=== PATIENT | female | born 1960 | race Caucasian/White ===

== ENCOUNTER 2016-10-30 18:31 | Observation (INO) | payer OTHER ==
[2016-10-30] MEDS ORDERED: Aspirin 81 MG Tab.Chew PO ONE (19:03)
[2016-10-30] MEDS: Nitroglycerin 0.4 MG Tab.SL SL PRN ×3 (19:21→19:39)
[2016-10-30] MEDS ORDERED: Nitroglycerin/D5W 25 MG/250 ML BOTTLE IV SCH (19:45)
[2016-10-30] MEDS ORDERED: Ondansetron 4 MG/2 ML SDV IVPUSH ONE (19:48)
[2016-10-30] MEDS ORDERED: Sodium Chloride 0.9% 1,000 ML IV SCH (20:00)
[2016-10-30] MEDS ORDERED: Morphine 4 MG/ML Syringe IVPUSH ONE (20:16)
--- NOTE | 2016-10-30 21:51 | EDM.PDOC ---
ED HPI GENERAL MEDICAL PROBLEM - General Chief Complaint: Chest Pain Stated Complaint: CHEST PAIN Time Seen by Provider: 10/30/16 18:55 Source of Information: Reports: Patient History Limitations: Reports: No Limitations - History of Present Illness INITIAL COMMENTS - FREE TEXT/NARRATIVE: History of present illness: [56-year-old female presenting with right-sided chest pain radiating through to her back which began at 5:00 this evening when she was walking. It is associated with some shortness of breath and nausea but no diaphoresis. She noted that when she was walking she had to sit down and rest and catch her breath and this seemed unusual to her. She has no history of coronary disease or blood clots or PEs. She does have a history of hypertension and diabetes and is on metformin. She is a nonsmoker. She is presenting it was 7 out of 10 pain. No history of fevers or chills cough or cold symptoms or leg pain no constipation diarrhea or dysuria] Review of systems: As per history of present illness and below otherwise all systems reviewed and negative. Past medical history: As per history of present illness and as reviewed below otherwise noncontributory. Surgical history: As per history of present illness and as reviewed below otherwise noncontributory. Social history: No reported history of drug or alcohol abuse. Family history: As per history of present illness and as reviewed below otherwise noncontributory. Physical exam: HEENT: Atraumatic, normocephalic, pupils reactive, negative for conjunctival pallor or scleral icterus, mucous membranes moist, throat clear, neck supple, nontender, trachea midline. Lungs: Clear to auscultation, breath sounds equal bilaterally, chest nontender. Heart: S1S2, regular, negative for clicks, rubs, or JVD. Abdomen: Soft, nondistended, nontender. Negative for masses or hepatosplenomegaly. Negative for costovertebral tenderness. Pelvis: Stable nontender. Genitourinary: Deferred. Rectal: Deferred. Extremities: Atraumatic, negative for cords or calf pain. Neurovascular unremarkable. Neuro: Awake, alert, oriented. Cranial nerves II through XII unremarkable. Cerebellum unremarkable. Motor and sensory unremarkable throughout. Exam nonfocal. Diagnostics: [Initial EKG showed flipped T waves in anterior leads initial troponin was negative d-dimer is normal CBC and complete metabolic panel is unremarkable] Therapeutics: [Patient was given aspirin and sublingual nitroglycerin and her pain went from a 7 to about a 4 she was started on nitro drip that brought it down to 2 she was given morphine and it dropped down to about 0.5. At this point and a repeat EKG was done and continued to show the flipped T waves otherwise no changes were noted she is in a sinus rhythm rate of 63. She's been hemodynamic stable while here] Impression: [Chest pain] Plan: [I spoke with Dr. Roberto and the patient will be admitted to the intensive care unit for concerns for coronary artery syndrome.] Definitive disposition and diagnosis as appropriate pending reevaluation and review of above. chest Pain Score (Numeric/FACES): 2 - Related Data Allergies Allergy/AdvReac Type Severity Reaction Status Date / Time No Known Allergies Allergy Verified 10/30/16 18:46 Home Meds: Home Meds Bisoprolol/Hydrochlorothiazide [Bisoprolol/HCTZ 5-6.25 MG] 1 tab PO DAILY [History] Doxycycline Hyclate 20 mg PO BID 10/30/16 [History] Lisinopril 5 mg PO DAILY 10/30/16 [History] metFORMIN [Glucophage] 500 mg PO BID 10/30/16 [History] Past Medical History Cardiovascular History: Reports: High Cholesterol, Hypertension Other Musculoskeletal History: fused spine. whitley rods Endocrine/Metabolic History: Reports: Diabetes, Type II - Past Surgical History GI Surgical History: Reports: Cholecystectomy Female Surgical History: Reports: Section Social & Family History - Tobacco Use Smoking Status *Q: Never Smoker - Recreational Drug Use Recreational Drug Use: No ED ROS GENERAL - Review of Systems Review Of Systems: ROS reveals no pertinent complaints other than HPI. ED EXAM, GENERAL - Physical Exam Exam: See Below Course - Vital Signs Last Recorded V/S: Last Vital Signs Temp 36.5 C 10/30/16 19:23 Pulse 57 L 10/30/16 21:00 Resp 17 10/30/16 20:09 BP 159/81 H 10/30/16 21:00 Pulse Ox 95 10/30/16 21:00 - Orders/Labs/Meds Orders: Active Orders 24 hr Category Date Time Status EKG Documentation Completion [RC] ASDIRECTED Care 10/30/16 19:04 Active EKG Documentation Completion [RC] ASDIRECTED Care 10/30/16 20:35 Active Chest 1V Frontal [CR] Stat Exams 10/30/16 19:03 Taken Nitroglycerin/D5W [Nitroglycerin 25 MG/D5W 250 ML] Med 10/30/16 19:45 Active 25 mg in 250 ml IV TITRATE Sodium Chloride 0.9% [Normal Saline] 1,000 ml Med 10/30/16 20:00 Active IV ASDIRECTED EKG 12 Lead [EK] Stat Ther 10/30/16 19:03 Ordered EKG 12 Lead [EK] Stat Ther 10/30/16 20:34 Ordered Medication Orders Nitroglycerin/Dextrose (Nitroglycerin 25 Mg/D5w 250 Ml) 25 mg in 250 mls @ 6 mls/hr IV TITRATE MARY; 10 MCG/MIN PRN Reason: Protocol Last Admin: 10/30/16 19:59 Dose: 10 mcg/min, 6 mls/hr Sodium Chloride (Normal Saline) 1,000 mls @ 200 mls/hr IV ASDIRECTED MARY Last Admin: 10/30/16 19:55 Dose: 200 mls/hr Labs: Laboratory Tests 10/30/16 10/30/16 10/30/16 Range/Units 19:03 19:03 19:03 WBC 8.4 (4.5-11.0) K/uL RBC 4.47 (3.30-5.50) M/uL Hgb 13.4 (12.0-15.0) g/dL Hct 38.2 (36.0-48.0) % MCV 86 (80-98) fL MCH 30 (27-31) pg MCHC 35 (32-36) % Plt Count 257 (150-400) K/uL Neut % (Auto) 65 (36-66) % Lymph % (Auto) 25 (24-44) % [place] % (Auto) 7 H (2-6) % Eos % (Auto) 2 (2-4) % Baso % (Auto) 1 (0-1) % D-Dimer, Quantitative 108 (0.0-400.0) ng/mL Sodium 135 L (140-148) mmol/L Potassium 3.9 (3.6-5.2) mmol/L Chloride 98 L (100-108) mmol/L Carbon Dioxide 28 (21-32) mmol/L Anion Gap 12.9 (5.0-14.0) mmol/L BUN 18 (7-18) mg/dL Creatinine 1.0 (0.6-1.0) mg/dL Est Cr Clr Drug Dosing 53.60 mL/min Estimated GFR (MDRD) 57 L (>60) Glucose 217 H (74-106) mg/dL Calcium 9.0 (8.5-10.1) mg/dL Total Bilirubin 0.7 (0.2-1.0) mg/dL AST 34 (15-37) U/L ALT 60 (12-78) U/L Alkaline Phosphatase 93 (46-116) U/L Troponin I < 0.017 (0.000-0.056) ng/mL Total Protein 7.9 (6.4-8.2) g/dL Albumin 3.9 (3.4-5.0) g/dL Globulin 4.0 H (2.3-3.5) g/dL Albumin/Globulin Ratio 1.0 L (1.2-2.2) Meds: Medications Generic Name Dose Route Start Last Admin Trade Name Freq PRN Reason Stop Dose Admin Nitroglycerin/Dextrose 25 mg in 250 mls @ 6 mls/hr 10/30/16 19:45 10/30/16 19 :59 Nitroglycerin 25 Mg/D5w 250 Ml IV 10 mcg/min TITRATE MARY 6 mls/hr Protocol Administration 10 MCG/MIN Sodium Chloride 1,000 mls @ 200 mls/hr 10/30/16 20:00 10/30/16 19:55 Normal Saline IV 200 mls/hr ASDIRECTED MARY Administration Discontinued Medications Generic Name Dose Route Start Last Admin Trade Name Freq PRN Reason Stop Dose Admin Aspirin 324 mg 10/30/16 19:03 10/30/16 19:20 Aspirin PO 10/30/16 19:04 324 mg ONETIME ONE Administration Morphine Sulfate 4 mg 10/30/16 20:16 10/30/16 20:36 Morphine IVPUSH 10/30/16 20:17 4 mg ONETIME ONE Administration Nitroglycerin 0.4 mg 10/30/16 19:03 10/30/16 19:39 Nitrostat SL 10/30/16 19:14 0.4 mg Q5M PRN Administration Chest Pain Ondansetron HCl 4 mg 10/30/16 19:48 10/30/16 19:59 Zofran IVPUSH 10/30/16 19:49 4 mg ONETIME ONE Administration Departure - Departure Time of Disposition: 21:50 Disposition: Admitted As Inpatient 65 Condition: Good Clinical Impression: Chest pain Qualifiers: Chest pain type: unspecified Qualified Code(s): R07.9 - Chest pain, unspecified Forms: ED Department Discharge - My Orders Last 24 Hours: My Active Orders 10/30/16 19:03 Chest 1V Frontal [CR] Stat EKG 12 Lead [EK] Stat 10/30/16 19:04 EKG Documentation Completion [RC] ASDIRECTED 10/30/16 19:45 Nitroglycerin/D5W [Nitroglycerin 25 MG/D5W 250 ML] 25 mg in 250 ml IV TITRATE 10/30/16 20:00 Sodium Chloride 0.9% [Normal Saline] 1,000 ml IV ASDIRECTED 10/30/16 20:34 EKG 12 Lead [EK] Stat 10/30/16 20:35 EKG Documentation Completion [RC] ASDIRECTED - Assessment/Plan Last 24 Hours: My Active Orders 10/30/16 19:03 Chest 1V Frontal [CR] Stat EKG 12 Lead [EK] Stat 10/30/16 19:04 EKG Documentation Completion [RC] ASDIRECTED 10/30/16 19:45 Nitroglycerin/D5W [Nitroglycerin 25 MG/D5W 250 ML] 25 mg in 250 ml IV TITRATE 10/30/16 20:00 Sodium Chloride 0.9% [Normal Saline] 1,000 ml IV ASDIRECTED 10/30/16 20:34 EKG 12 Lead [EK] Stat 10/30/16 20:35 EKG Documentation Completion [RC] ASDIRECTED
--- NOTE | 2016-10-30 22:44 | PCM.HP ---
H&P History of Present Illness - General Date of Service: 10/30/16 Admit Problem/Dx: Admission Diagnosis/Problem Admission Diagnosis/Problem Atypical chest pain Source of Information: Patient, Family, Provider History Limitations: Reports: No Limitations - History of Present Illness Initial Comments - Free Text/Narative: Katherine presents to the emergency room today with right lower chest pain that radiates to her back. She first noticed the pressure-like pain around 5:30 PM this evening while she was shopping. The shopping trip was nearing a conclusion and they hopped in the car and were headed home. While she was going home the pain did not improve. She did have some associated shortness of breath described as difficulty trying to take a breath. She did not take anything to try to make the pain better before arriving at the emergency room. The pain did radiate around to the back. She had some mild nausea earlier in the day and had an episode of vomiting here in the emergency room after she had received 3 nitroglycerin tablets. Her chest pain has essentially resolved at this point. She no longer feels short of breath. She has not had fevers or chills. Appetite has been normal. She had a light lunch but did have a Dairy White blizzard this evening. She has not had recent difficulty with similar symptoms. Her ability to exercise has not changed in recent months and she is able to exercise moderately vigorously in a pool for 20 minutes with no chest pain or shortness of breath. Workup in the emergency room has been reassuring with normal laboratory studies , normal chest x-ray and stable vital signs. She is essentially pain-free after 3 doses of nitroglycerin and a dose of morphine. 2 EKGs showed some mildly inverted T waves anteriorly but there were no changes from one to another. The plan is for admission to observe and get serial troponins. chest Pain Score (Numeric/FACES): 2 - Related Data Allergies/Adverse Reactions: Allergies Allergy/AdvReac Type Severity Reaction Status Date / Time No Known Allergies Allergy Verified 10/30/16 18:46 Home Medications: Home Meds Bisoprolol/Hydrochlorothiazide [Bisoprolol/HCTZ 5-6.25 MG] 1 tab PO DAILY [History] Doxycycline Hyclate 20 mg PO BID 10/30/16 [History] Lisinopril 5 mg PO DAILY 10/30/16 [History] metFORMIN [Glucophage] 500 mg PO BID 10/30/16 [History] Past Medical History Cardiovascular History: Reports: High Cholesterol, Hypertension Other Musculoskeletal History: fused spine. whitley rods Endocrine/Metabolic History: Reports: Diabetes, Type II - Past Surgical History GI Surgical History: Reports: Cholecystectomy Female Surgical History: Reports: Section Social & Family History - Family History Cardiac: Reports: CAD (father in his 60's) - Tobacco Use Smoking Status *Q: Never Smoker - Alcohol Use Alcohol Use History: Yes Days Per Week of Alcohol Use: 1 Total Drinks Per Week Comment: 1 glass of wine - Recreational Drug Use Recreational Drug Use: No H&P Review of Systems - Review of Systems: Review Of Systems: See Below Free Text/Narrative: A complete 12 point review of systems was obtained. Pertinent positives and negatives are noted in the history of present illness. All other systems were reviewed and were negative except as noted. Exam - Exam Exam: See Below - Vital Signs Vital Signs: Last Vital Signs Temp 36.5 C 10/30/16 19:23 Pulse 57 L 10/30/16 21:00 Resp 17 10/30/16 20:09 BP 159/81 H 10/30/16 21:00 Pulse Ox 95 10/30/16 21:00 Weight: 105.3 kg - Exam Quality Assessment: Supplemental Oxygen General: Alert, Oriented, Cooperative. No: Mild Distress HEENT: Conjunctiva Clear, Mucosa Moist & [place]. No: Scleral Icterus Neck: Supple, Trachea Midline. No: Lymphadenopathy Lungs: Clear to Auscultation, Normal Respiratory Effort Cardiovascular: Regular Rate, Regular Rhythm. No: Systolic Murmur GI/Abdominal Exam: Normal Bowel Sounds, Soft, Non-Tender, No Distention Back Exam: Full Range of Motion, Paraspinal Tenderness (right upper back ), Other (healed surgical scar) Extremities: Normal Inspection, No Pedal Edema. No: Increased Warmth Peripheral Pulses: 2+: Dorsalis Pedis (L), Dorsalis Pedis (R) Skin: Warm, Dry Neuro Extensive - Mental Status: Alert, Oriented x3, Nl Response to Commands Neuro Extensive - Motor, Sensory, Reflexes: CN II-XII Intact. No: Dysarthria, Abnormal Motor, Tremor Psychiatric: Alert, Normal Affect - Patient Data Lab Results Last 24 hrs: Laboratory Results - last 24 hr 0810/30/16 10/30/16 Range/Units 19:03 19:03 19:03 WBC 8.4 (4.5-11.0) K/uL RBC 4.47 (3.30-5.50) M/uL Hgb 13.4 (12.0-15.0) g/dL Hct 38.2 (36.0-48.0) % MCV 86 (80-98) fL MCH 30 (27-31) pg MCHC 35 (32-36) % Plt Count 257 (150-400) K/uL Neut % (Auto) 65 (36-66) % Lymph % (Auto) 25 (24-44) % [place] % (Auto) 7 H (2-6) % Eos % (Auto) 2 (2-4) % Baso % (Auto) 1 (0-1) % D-Dimer, Quantitative 108 (0.0-400.0) ng/mL Sodium 135 L (140-148) mmol/L Potassium 3.9 (3.6-5.2) mmol/L Chloride 98 L (100-108) mmol/L Carbon Dioxide 28 (21-32) mmol/L Anion Gap 12.9 (5.0-14.0) mmol/L BUN 18 (7-18) mg/dL Creatinine 1.0 (0.6-1.0) mg/dL Est Cr Clr Drug Dosing 53.60 mL/min Estimated GFR (MDRD) 57 L (>60) Glucose 217 H (74-106) mg/dL Calcium 9.0 (8.5-10.1) mg/dL Total Bilirubin 0.7 (0.2-1.0) mg/dL AST 34 (15-37) U/L ALT 60 (12-78) U/L Alkaline Phosphatase 93 (46-116) U/L Troponin I < 0.017 (0.000-0.056) ng/mL Total Protein 7.9 (6.4-8.2) g/dL Albumin 3.9 (3.4-5.0) g/dL Globulin 4.0 H (2.3-3.5) g/dL Albumin/Globulin Ratio 1.0 L (1.2-2.2) Result Diagrams: 10/30/16 19:03 10/30/16 19:03 Imaging Impressions Last 24 hrs: CXR - images personally reviewed - clear, no mass, infiltate or effusion EKG INTERPRETATION EKG Date: 10/30/16 Rhythm: NSR (63) [place]: Normal P-Wave: Present QRS: Normal ST-T: Normal QT: Normal EKG Interpretation Comments: inverted T in III and V1-V3 (stable on repeat EKG) *Q Meaningful Use (ADM) - VTE *Q VTE Criteria *Q: - VTE Risk Assess *Q Each Risk Factor Represents 1 Point: Age 41 - 59 years, Obesity (BMI greater than 30) Total Score 1 Point Risk Factors: 2 Each Risk Factor Represents 2 Points: None Total Score 2 Point Risk Factors: 0 Each Risk Factor Represents 3 Points: None Total Score 3 Point Risk Factors: 0 Each Risk Factor Represents 5 Points: None Total Score 5 Point Risk Factors: 0 Venous Thromboembolism Risk Factor Score *Q: 2 - Stroke *Q Stroke Criteria *Q: - AMI *Q AMI Criteria *Q: - Problem List (1) Atypical chest pain SNOMED Code(s): 278997778 ICD Code: R07.89 - OTHER CHEST PAIN Status: Acute Current Visit: Yes (2) Type II diabetes mellitus SNOMED Code(s): 77915261 ICD Code: E11.9 - TYPE 2 DIABETES MELLITUS WITHOUT COMPLICATIONS Status: Chronic Current Visit: Yes Qualifiers: Diabetes mellitus complication status: without complication Diabetes mellitus mcc insulin use: without rn long term care use Qualified Code(s): E11.9 - Type 2 diabetes mellitus without complications (3) Essential hypertension SNOMED Code(s): 93799349 ICD Code: I10 - ESSENTIAL (PRIMARY) HYPERTENSION Status: Chronic Current Visit: Yes Problem List Initiated/Reviewed/Updated: Yes Orders Last 24hrs: Active Orders 24 hr Category Date Time Status Patient Status Manage Transfer [TRANSFER] Routine ADT 10/30/16 22:34 Ordered EKG Documentation Completion [RC] ASDIRECTED Care 10/30/16 19:04 Active EKG Documentation Completion [RC] ASDIRECTED Care 10/30/16 20:35 Active Chest 1V Frontal [CR] Stat Exams 10/30/16 19:03 Taken Sodium Chloride 0.9% [Normal Saline] 1,000 ml Med 10/30/16 20:00 Active IV ASDIRECTED Resuscitation Status Routine Resus Stat 10/30/16 22:35 Ordered EKG 12 Lead [EK] Stat Ther 10/30/16 19:03 Ordered EKG 12 Lead [EK] Stat Ther 10/30/16 20:34 Ordered Medication Orders Sodium Chloride (Normal Saline) 1,000 mls @ 200 mls/hr IV ASDIRECTED [facility] Last Admin: 10/30/16 19:55 Dose: 200 mls/hr Assessment/Plan Comment:: Assessment and plan - Atypical chest pain - right-sided pain that persisted for weighted duration of time. She has had some nausea and an episode of vomiting today. No strong evidence for bacterial infection but viral infection could be considered. I doubt that this represents acute coronary syndrome with excellent functional status and essentially normal workup. Serial EKGs are unchanged. D-dimer is normal. She is currently pain-free. Gastrointestinal cause seems most likely to me. Patient also reports a history of significant back history and occasionally gets unusual pains that she blames on the surgery and thinks this may be one of them as well. -Stop nitroglycerin -Serial troponin levels -Pain control with trial of Maalox and/or acetaminophen or morphine -Patient will discuss outpatient stress testing with her primary care when she returns home Type 2 diabetes mellitus - On only metformin as an outpatient. -Continue home medications Essential hypertension - Blood pressure well controlled and usual medications will be continued. Maintenance issues - - DVT prophylaxis - mechanical - GI prophylaxis - not indicated - Nutrition - diabetic diet - Rogers catheter - not indicated CODE STATUS - full code Admission justification - patient will be referred observation status for overnight monitoring and serial troponin levels Disposition - anticipate discharge to home tomorrow Primary care physician - From [facility] [facility] [employer] [facility] Otf Roberto M.D.
[2016-10-30] MEDS ORDERED: Acetaminophen 325 MG Tab PO PRN (22:50)
[2016-10-30] MEDS ORDERED: Morphine 2 MG/ML Syringe IVPUSH PRN (22:50)
[2016-10-30] MEDS ORDERED: Ondansetron 4 MG Tab.DIS PO PRN (22:50)
[2016-10-31 06:40] VITALS: BP 127/61
[2016-10-31] MEDS ORDERED: metFORMIN 500 MG Tab PO SCH (08:00)
[2016-10-31] MEDS ORDERED: Lisinopril 5 MG Tab PO SCH (09:00)
[2016-10-31] MEDS ORDERED: DOXYCYCLINE HYCLATE 20 MG PO SCH (09:00)
--- NOTE | 2016-10-31 09:00 | PCM.DCSUM1 ---
Discharge Summary - Hospital Course Brief History: 56-year-old female with history of type 2 diabetes mellitus and hypertension who presented with right-sided chest pain and vomiting. She was admitted for observation. - Discharge Data Discharge Date: 10/31/16 Discharge Disposition: Home, Self-Care 01 Condition: Good - Discharge Diagnosis/Problem(s) (1) Atypical chest pain SNOMED Code(s): 544974725 ICD Code: R07.89 - OTHER CHEST PAIN Status: Acute Problem Details: Gastritis? (2) Type II diabetes mellitus SNOMED Code(s): 31361623 ICD Code: E11.9 - TYPE 2 DIABETES MELLITUS WITHOUT COMPLICATIONS Status: Chronic Qualifiers: Diabetes mellitus complication status: without complication Diabetes mellitus fdc insulin use: without terminologist use Qualified Code(s): E11.9 - Type 2 diabetes mellitus without complications (3) Essential hypertension SNOMED Code(s): 51902609 ICD Code: I10 - ESSENTIAL (PRIMARY) HYPERTENSION Status: Chronic - Patient Summary/Data Hospital Course: Katherine presented last night with right-sided chest pain, stomach upset and vomiting. Initially there was concern for acute coronary syndrome though workup in the emergency room was reassuring. Serial troponins were collected overnight and were unremarkable. Telemetry was unremarkable overnight. She did have an increase in her pain when she tried to eat supper last night but otherwise has been pain-free. This morning she ate breakfast and had no difficulty with pain and she has not had any nausea. She has been up and walking around and has not had any pain. I suspect that her difficulties were gastrointestinal in nature though I do not have a specific etiology. She seems to be back to normal and is tolerating her diet well at this time. I believe she is safe for outpatient management. She will be following up with her primary care when she returns home. She will return if symptoms worsen in the meantime. I don't believe she needs stress testing at this time. - Patient Instructions Diet: Regular Diet as Tolerated (Soft and bland foods for the next few days) Activity: As Tolerated Driving: May Drive Today Showering/Bathing: May Shower Notify Provider of: Fever, Increased Pain, Nausea and/or Vomiting Other/Special Instructions: 1. You were in the hospital for management of atypical chest pain that I suspect was caused by inflammation in your stomach. The exact cause for your difficulty was not determined but possibilities would include a mild viral infection or possibly transient inflammation. There was no evidence that you had a heart attack. I would recommend that you eat soft and bland foods for the next few days and slowly return to a normal diet. You could consider using Tums or Maalox to help relieve symptoms of stomach upset. 2. Continue your usual home medications as previously prescribed. 3. Follow-up with your primary care provider if symptoms do not continue to improve or they get worse. 4. Please seek medical attention if you develop fever greater than 101, have return of the severe pain or have persistent vomiting. - Discharge Plan Home Medications: Home Meds Bisoprolol/Hydrochlorothiazide [Bisoprolol/HCTZ 5-6.25 MG] 1 tab PO DAILY [History] Doxycycline Hyclate 20 mg PO BID 10/30/16 [History] Lisinopril 5 mg PO DAILY 10/30/16 [History] metFORMIN [Glucophage] 500 mg PO BID 10/30/16 [History] Patient Handouts: Gastritis, Adult Referrals: PCP,None [Primary Care Provider] - (Follow up with your primary care when you return to [place] ) - Discharge Summary/Plan Comment DC Time >30 min.: No (25) - Patient Data Vitals - Most Recent: Last Vital Signs Temp 36.0 C 10/30/16 22:50 Pulse 59 L 10/31/16 06:00 Resp 17 10/31/16 06:00 BP 127/61 10/31/16 06:00 Pulse Ox 95 10/31/16 06:00 Weight - Most Recent: 105.3 kg I&O - Last 24 hours: Intake & Output 10/30/16 10/31/16 10/31/16 22:59 06:59 14:59 Intake Total 980 Output Total 950 Balance 30 Lab Results - Last 24 hrs: Laboratory Results - last 24 hr 10/30/16 10/31/16 Range/Units 23:05 04:40 Troponin I < 0.017 < 0.017 (0.000-0.056) ng/mL Med Orders - Current: Current Medications Acetaminophen (Tylenol) 650 mg PO Q4H PRN PRN Reason: Pain (Mild 1-3)/fever Last Admin: 10/31/16 01:36 Dose: 650 mg Bisoprolol Fumarate/HCTZ ([place] 5-6.25 Mg) 1 tab PO DAILY [facility] Lisinopril (Prinivil) 5 mg PO DAILY [facility] Metformin HCl (Glucophage) 500 mg PO BIDMEALS [facility] Morphine Sulfate (Morphine) 2 - 4 mg IVPUSH Q2H PRN PRN Reason: Pain (severe 7-10) Non-Formulary Medication (Doxycycline Hyclate [Doxycycline Hyclate]) 20 mg PO BID [facility] Ondansetron HCl (Zofran Odt) 4 mg PO Q6H PRN PRN Reason: Nausea able to take PO Last Admin: 10/31/16 01:35 Dose: 4 mg Discontinued Medications Aspirin (Aspirin) 324 mg PO ONETIME ONE Stop: 10/30/16 19:04 Last Admin: 10/30/16 19:20 Dose: 324 mg Nitroglycerin/Dextrose (Nitroglycerin 25 Mg/D5w 250 Ml) 25 mg in 250 mls @ 6 mls/hr IV TITRATE MARY; 10 MCG/MIN PRN Reason: Protocol Last Admin: 10/30/16 19:59 Dose: 10 mcg/min, 6 mls/hr Sodium Chloride (Normal Saline) 1,000 mls @ 200 mls/hr IV ASDIRECTED MARY Last Admin: 10/30/16 19:55 Dose: 200 mls/hr Morphine Sulfate (Morphine) 4 mg IVPUSH ONETIME ONE Stop: 10/30/16 20:17 Last Admin: 10/30/16 20:36 Dose: 4 mg Nitroglycerin (Nitrostat) 0.4 mg SL Q5M PRN PRN Reason: Chest Pain Stop: 10/30/16 19:14 Last Admin: 10/30/16 19:39 Dose: 0.4 mg Ondansetron HCl (Zofran) 4 mg IVPUSH ONETIME ONE Stop: 10/30/16 19:49 Last Admin: 10/30/16 19:59 Dose: 4 mg *Q Meaningful Use (DIS) - VTE *Q VTE Criteria *Q: - Stroke *Q Stroke Criteria *Q: - AMI *Q AMI Criteria *Q:
--- NOTE | 2016-10-31 11:26 | CR ---
Heart size is upper limits of normal. There is no focal consolidation. Rhianna rods. No pneumotho rax. Prominence of the right hilum could be exaggerated due to positioning and scoliotic curve of th e right thoracic spine. Recommend comparison to priors or would recommend dedicated 2 view chest x-r ay follow-up to exclude any hilar mass. If this persists on [address] follow-up.
== END 2016-10-31 09:19 | disposition home or self-care (01) ==
LOC: JP.ED 18:31 → JP.ICU 22:34
PROVIDERS: ADMIT Internal Medicine; ATTEND Internal Medicine
DX: R07.89 Other chest pain (principal); E11.9 Type 2 diabetes mellitus without complications; I10 Essential (primary) hypertension; E78.00 Pure hypercholesterolemia, unspecified; Z79.84 Long term (current) use of oral hypoglycemic drugs; Z79.899 Other long term (current) drug therapy; Z90.49 Acquired absence of other specified parts of digestive tract; Z98.890 Other specified postprocedural states
CPT/HCPCS: 36415; 71010; 80053; 84484; 85025; 85379; 93005; 96365; 96366; 96375; 99285; A9270; G0378; J2270; J2405; J7040